=== PATIENT | female | born 1990 | race African-American/Black ===

== ENCOUNTER → 2017-10-17 | Outpatient (CLI) | payer OTHER | END | disposition home or self-care (01) | LOC: C.PAPS 11:36 | PROVIDERS: ATTEND Physician Assistant | DX: Z12.4 Encounter for screening for malignant neoplasm of cervix (principal) ==

== ENCOUNTER 2020-08-27 13:21 | Observation (INO) ==
[~2020-08-27 13:21] MED LIST: LACTATED RINGER'S 1,000 ML IV SCH
--- OUTSIDE RECORDS SUMMARY | 2020-08-27 13:25 | External Medical Summary | Continuity of Care Document ---
:1990 Author Name Chuck Ortega, Provider Address Unavailable Unavailable , Care Team Providers Name Role Phone Unavailable Unavailable Unavailable Linh Boone PA-C Unavailable [email or web address] [email or web address], UNKNOWN Unavailable Unavailable Unavailable Unavailable Unavailable Problems Active medical history not documented Allergies and Adverse Reactions No Known Drug Allergies (Allergy) Medications Microgestin FE 07/14 1-20 MG-MCG Oral Tablet; TAKE ONE TABLET BY MOUTH EVERY DAY ASHLEE Boone Start: 17-Oct-2017 Quantity: 1 28 Tablet Pack Refills: 12 Procedures History of no history of surgery Status: Completed Immunizations Immunizations not documented Family History uncle Family history of type 2 diabetes mellitus (V18.0) (Z83.3) S tatus: Active Social History - Smoking Status Smoker Interventions Discussion/SummaryI reviewed laboratory results for Ms. JHONY GARCIA. Pap Smear is normal I reviewed laboratory results for Ms. JHONY GARCIA. I reviewed laboratory results for Ms. JHONY GARCIA. Reviewed results with Ms. JHONY GARCIA. Plan of Treatment Planned Observations Planned Goals not documented Results No Known Results Results not documented
--- NOTE | 2020-08-27 14:19 | Emergency Department Note ---
Impression & Plan Ruptured ectopic ED Provider Note CHIEF COMPLAINT: Cramping and vaginal bleeding last night, positive home test this morning. HISTORY OF PRESENT ILLNESS: Patient is a 29-year-old female, G2, P0 Ab1 who presents the emergency department for evaluation of irregular vaginal bleeding, pelvic cramping and a positive home test. Patient notes that she had a normal menstrual cycle 08/03 through 08/07. Last evening, around 7:30 PM, she developed very bad suprapubic cramping that radiated to the bilateral adnexa. She tried a heating pad and taking ibuprofen. A few hours later, around 10:00, she had an abrupt gush of vaginal bleeding. She placed a tampon. She slept through the night. She kept the tampon and overnight. When she took out the tampon this morning, there was only a small amount of blood on it, it was not completely saturated, there is still white cotton visualized. She continued to have some mild discomfort today, suprapubic and radiating to the right lower quadrant. The cramping is much better. Patient states that while at work this morning, she took a home test, and it was positive. She is not due for her period for another 4 days. She still has some minor spotting this morning, and is wearing a tampon is unable to quantify the bleeding. 1 prior , terminated with an . No other gynecologic history. She has not had any gynecologic care in about 3 years, was previously seen at [facility]. REVIEW OF SYSTEMS: Review of systems as per HPI. All other systems reviewed were negative. 10 systems reviewed. PMH: Electronic medical records are reviewed and summarized as above/below. See Problem List.. SOCIAL HISTORY: Patient lives at home with her . Non-smoker. She is employed. PHYSICAL EXAM: Vital Signs: Reviewed Nurse's notes. CONSTITUTIONAL: Patient is a well-appearing 29-year-old female who is awake and alert and in no acute distress. EYES: Pupils equal, round, reactive to light and accommodation. EOMs intact without nystagmus. Sclera are anicteric. ENT: Tympanic membranes intact, with normal landmarks. External canals are clear. Oral and nasopharynx are clear. Mucous membranes are moist, no lesions, tongue and gums appear normal. CARDIOVASCULAR: Regular rate and rhythm. Peripheral pulses easily palpable. RESPIRATORY: Breath sounds equal and clear to auscultation. ABDOMEN: Bowel sounds are present. Abdomen is soft, slightly obese, nontender to percussion throughout. Mildly tender to palpation in the suprapubic region, and the right lower quadrant. No guarding or rebound. INTEGUMENTARY: No lesions or rash, normal skin turgor. LYMPH: No lymphadenopathy. EMERGENCY DEPARTMENT COURSE: The patient was seen and evaluated as above. She presents the emergency department for evaluation of abnormal vaginal bleeding and pelvic pain, with a positive home test this morning. Given her last menstrual period, she would be roughly 3 weeks . IV lock was initiated and laboratory studies were collected. She believes her blood type is A+. CBC with differential, BMP, urinalysis and quantitative hCG were collected. Laboratory studies noted a white count of 11,400. No left shift. H&H 13.2 and 30.6. Platelet count is normal. Electrolytes are within normal limits. Renal functions are normal. Quantitative hCG is 1755. Urine microscopy notes trace blood, positive for nitrates, trace leukocyte esterase with WBCs. 4+ bacteria noted. Patient is not experiencing any UTI symptoms, but urine culture is pending given the coloscopy. Blood type is confirmed as a positive. Given the hCG level, pelvic ultrasound was ordered. The pelvic ultrasound is concerning for a ruptured ectopic. There is a complex lesion in the right adnexa immediately adjacent to the right ovary with a moderate volume of complex free fluid in the pelvis. The endometrium is thickened and heterogeneous with no intrauterine gestation identified. Consultation was placed with Dr. Roberson. The patient was reassessed when she returned from ultrasound. Ultrasound findings were reviewed with the patient and her spouse. She was made aware that gynecology would be coming to see her. Last solid food intake was around 1200. She has had some Gatorade while in the emergency department over the last 3 hours. A Covid swab was obtained for suspected OR. The patient was seen in the emergency department by Dr. Roberson. He will take her to the OR this evening for surgical intervention. Differential diagnosis entertained included spontaneous vs missed vs incomplete , IUP, menses, abnormal vaginal bleeding, ectopic , among others. Past Med/Surg History Medical History No significant past medical history Surgical History No history of previous surgery Social History Smoking Status: Never smoker Preferred Language: Indonesian Feels Safe at Home: Yes Allergies Allergies Allergy/AdvReac Type Severity Reaction Status Date / Time No Known Allergies Allergy Verified 08/27/20 15:00 Home Meds Home Medications Medication Instructions Recorded Confirmed ibuprofen 400 mg PO DIRECTED PRN 08/27/20 08/27/20 Results & Data (ED) Vital Signs Vital Signs - 24 hr 08/27/20 13:29 08/27/20 16:00 08/27/20 17:17 Temperature 36.4 C L Temperature Source Oral Pulse Rate 90 Pulse Rate [Finger] 79 70 Respiratory Rate 16 16 18 Respiratory Effort / Characteristics Non-Labored Respiratory Depth Normal Normal Blood Pressure 154/95 H Blood Pressure [Right Arm] 111/80 130/93 Blood Pressure Mean 114 Blood Pressure Mean [Right Arm] 90 105 Blood Pressure Position Sitting Blood Pressure Position [Right Arm] Lying Pulse Oximetry 100 100 Oxygen Delivery Method Room Air Room Air Sepsis Recent Fever Within 48 Hours No Sepsis New/Unexplained Change in Mental Status N/A Sepsis Action Taken by Nursing No Action Required Home Medications Current Medication List: was personally reviewed by me Laboratory Data Attestation: I reviewed the patient's lab results. Result diagrams: 08/27/20 14:20 08/27/20 14:20 Lab Results 08/27/20 08/27/20 08/27/20 Range/Units 14:20 14:20 14:20 WBC (4.8-10.8) K/uL RBC (4.2-5.4) M/uL Hgb (12.0-16.0) g/dL Hct (37-47) % MCV (80-100) fL MCH (25-34) pg MCHC (32-36) g/dL RDW Std Deviation (36.4-46.3) fL RDW Coeff of Jessica (11.5-14.5) % Plt Count (130-400) K/uL MPV (7.4-10.4) fL Neutrophils % (Manual) % Lymphocytes % (Manual) % Monocytes % (Manual) % Eosinophils % (Manual) % Basophils % (Manual) % Neutrophils # (Manual) (1.4-6.5) K/uL Total Absolute Neuts (1.4-6.5) K/uL Lymphocytes # (Manual) (1.2-3.4) K/uL Total Abs Lymphocytes (1.2-3.4) K/uL Monocytes # (Manual) (0.11-0.59) K/uL Eosinophils # (Manual) (0-0.5) K/uL Basophils # (Manual) (0-0.2) K/uL Large Granular Lymphs % # Lrg Granular Lymphs K/uL RBC Morphology Sodium 139 (136-145) mmol/L Potassium 3.9 (3.5-5.1) mmol/L Chloride 110 H (98-107) mmol/L Carbon Dioxide 22 (21-32) mmol/L Anion Gap 7.0 (3-11) BUN 11 (7-18) mg/dl Creatinine 0.81 (0.6-1.2) mg/dl Est Cr Clr Drug Dosing 114.8 ml/min Est GFR ( Amer) 114.6 Est GFR (Non-Af Amer) 98.8 BUN/Creatinine Ratio 13.0 (10-20) Glucose 88 (70-99) mg/dl Calcium 9.2 (8.5-10.1) mg/dl HCG, Quant 1755 mIU/ml Specimen Hemolysis Urine Color Urine Appearance (Clear) Urine pH (4.5-7.5) Ur Specific [place] (1.000-1.030) Urine Protein (Negative) Urine Glucose (UA) (Negative) Urine Ketones (Negative) Urine Blood (Negative) Urine Nitrite (Negative) Urine Bilirubin (Negative) Urine Urobilinogen (Negative) Ur Leukocyte Esterase (Negative) Urine WBC (Auto) (0-5) /hpf Urine RBC (Auto) (0-4) /hpf U Hyaline Cast (Auto) (0-5) /lpf U Epithel Cells (Auto) (0-5) /lpf Urine Bacteria (Auto) (Negative) COVID-19 Eval Order SARS-CoV-2, RNA, NAAT (NEGATIVE) Blood Type A Positive 08/27/20 08/27/20 08/27/20 Range/Units 14:20 17:30 17:30 WBC 11.42 H (4.8-10.8) K/uL RBC 4.19 L (4.2-5.4) M/uL Hgb 13.2 (12.0-16.0) g/dL Hct 38.6 (37-47) % MCV 92.1 (80-100) fL MCH 31.5 (25-34) pg MCHC 34.2 (32-36) g/dL RDW Std Deviation 44.6 (36.4-46.3) fL RDW Coeff of Jessica 13.4 (11.5-14.5) % Plt Count 336 (130-400) K/uL MPV 9.3 (7.4-10.4) fL Neutrophils % (Manual) 40.2 % Lymphocytes % (Manual) 27.2 % Monocytes % (Manual) 8.8 % Eosinophils % (Manual) 1.8 % Basophils % (Manual) 0.9 % Neutrophils # (Manual) 4.59 (1.4-6.5) K/uL Total Absolute Neuts 4.59 (1.4-6.5) K/uL Lymphocytes # (Manual) 3.11 (1.2-3.4) K/uL Total Abs Lymphocytes 5.52 H (1.2-3.4) K/uL Monocytes # (Manual) 1.00 H (0.11-0.59) K/uL Eosinophils # (Manual) 0.21 (0-0.5) K/uL Basophils # (Manual) 0.10 (0-0.2) K/uL Large Granular Lymphs 21.1 % # Lrg Granular Lymphs 2.41 K/uL RBC Morphology Unremarkable Sodium (136-145) mmol/L Potassium (3.5-5.1) mmol/L Chloride (98-107) mmol/L Carbon Dioxide (21-32) mmol/L Anion Gap (3-11) BUN (7-18) mg/dl Creatinine (0.6-1.2) mg/dl Est Cr Clr Drug Dosing ml/min Est GFR ( Amer) Est GFR (Non-Af Amer) BUN/Creatinine Ratio (10-20) Glucose (70-99) mg/dl Calcium (8.5-10.1) mg/dl HCG, Quant mIU/ml Specimen Hemolysis Urine Color Urine Appearance (Clear) Urine pH (4.5-7.5) Ur Specific [place] (1.000-1.030) Urine Protein (Negative) Urine Glucose (UA) (Negative) Urine Ketones (Negative) Urine Blood (Negative) Urine Nitrite (Negative) Urine Bilirubin (Negative) Urine Urobilinogen (Negative) Ur Leukocyte Esterase (Negative) Urine WBC (Auto) (0-5) /hpf Urine RBC (Auto) (0-4) /hpf U Hyaline Cast (Auto) (0-5) /lpf U Epithel Cells (Auto) (0-5) /lpf Urine Bacteria (Auto) (Negative) COVID-19 Eval Order Covid19 IDNow atMWIC SARS-CoV-2, RNA, NAAT NEGATIVE (NEGATIVE) Blood Type 08/27/20 Range/Units Unknown WBC (4.8-10.8) K/uL RBC (4.2-5.4) M/uL Hgb (12.0-16.0) g/dL Hct (37-47) % MCV (80-100) fL MCH (25-34) pg MCHC (32-36) g/dL RDW Std Deviation (36.4-46.3) fL RDW Coeff of Jessica (11.5-14.5) % Plt Count (130-400) K/uL MPV (7.4-10.4) fL Neutrophils % (Manual) % Lymphocytes % (Manual) % Monocytes % (Manual) % Eosinophils % (Manual) % Basophils % (Manual) % Neutrophils # (Manual) (1.4-6.5) K/uL Total Absolute Neuts (1.4-6.5) K/uL Lymphocytes # (Manual) (1.2-3.4) K/uL Total Abs Lymphocytes (1.2-3.4) K/uL Monocytes # (Manual) (0.11-0.59) K/uL Eosinophils # (Manual) (0-0.5) K/uL Basophils # (Manual) (0-0.2) K/uL Large Granular Lymphs % # Lrg Granular Lymphs K/uL RBC Morphology Sodium (136-145) mmol/L Potassium (3.5-5.1) mmol/L Chloride (98-107) mmol/L Carbon Dioxide (21-32) mmol/L Anion Gap (3-11) BUN (7-18) mg/dl Creatinine (0.6-1.2) mg/dl Est Cr Clr Drug Dosing ml/min Est GFR ( Amer) Est GFR (Non-Af Amer) BUN/Creatinine Ratio (10-20) Glucose (70-99) mg/dl Calcium (8.5-10.1) mg/dl HCG, Quant mIU/ml Specimen Hemolysis Urine Color Yellow Urine Appearance Clear (Clear) Urine pH 7.0 (4.5-7.5) Ur Specific [place] 1.015 (1.000-1.030) Urine Protein Negative (Negative) Urine Glucose (UA) Negative (Negative) Urine Ketones Negative (Negative) Urine Blood Trace H (Negative) Urine Nitrite Positive A (Negative) Urine Bilirubin Negative (Negative) Urine Urobilinogen Negative (Negative) Ur Leukocyte Esterase Trace H (Negative) Urine WBC (Auto) 5-10 H (0-5) /hpf Urine RBC (Auto) 0-4 (0-4) /hpf U Hyaline Cast (Auto) 1-5 (0-5) /lpf U Epithel Cells (Auto) 20-30 H (0-5) /lpf Urine Bacteria (Auto) 4+ H (Negative) COVID-19 Eval Order SARS-CoV-2, RNA, NAAT (NEGATIVE) Blood Type Imaging Data Attestation: I personally reviewed and interpreted this imaging study as follows: Radiologist's Impression: ULTRASOUND OF THE PELVIS CLINICAL HISTORY: . Crampy abdominal pain. Bleeding. COMPARISON STUDY: No priors. TECHNIQUE: Real-time, grayscale, and color flow sonography of the pelvis is performed both transabdominally and endovaginally. Images are reviewed in the transverse and longitudinal planes. The endovaginal examination is performed to better assessment of the ovaries and adnexa. FINDINGS: Uterus: The uterus is normal in size and heterogeneous in echotexture, measuring 8.2 x 4.7 x 6.9 cm. Endometrium: Noted uterine gestation is identified. The endometrium is thickened and heterogeneous, measuring up to 1.4 cm. No abnormal flow was shown on color imaging. Ovaries: The ovaries are normal in size and morphology. The right ovary measures 3.4 x 2.8 x 2.2 cm and the left ovary measures 3.3 x 2.3 x 3.4 cm. There are bilateral ovarian follicles. A corpus luteum is suggested on the left. Normal Doppler waveforms are shown within both ovaries. Pelvis: There is a moderate volume of complex free fluid in the cul-de-sac. There is a complex lesion located immediately adjacent to the right ovary. This measures 6.6 x 4.7 x 2.5 cm this may contain a small gestational sac, and there is surrounding complex free fluid. IMPRESSION: 1. The endometrium is thickened and heterogeneous with no intrauterine gestation identified. 2. There is a complex lesion in the right adnexa immediately adjacent to the right ovary. Additionally, there is a moderate volume of complex free fluid in the pelvis. Findings are highly suspicious for a ruptured ectopic . Gynecological surgical assessment is advised. 3. Additional findings as above. Discharge Plan Visit Data Chief Complaint: Vaginal Bleeding Stated Complaint: CRAMPING, BLEEDING POSITIVE PREG ED Provider: Carlos Murrieta ED Midlevel Provider: Penny Taylor Discharge Problem: Ruptured ectopic Patient Disposition: Being Evaluated by Surgeon Forms [facility] [place] Prescriptions Prescriptions: No Action ibuprofen 200 mg Tablet 400 mg PO DIRECTED PRN (Reason: Pain) RF: 0 Referrals Referrals: PCP,NO [Primary Care Provider] -
[2020-08-27 14:31] LABS: Hematocrit (blood only) 38.6 % (37-47); Hemoglobin 13.2 g/dL (12.0-16.0); Mean Corpuscular Hemoglobin 31.5 pg (25-34); Mean Corpuscular Hgb Conc 34.2 g/dL (32-36); Mean Corpuscular Volume 92.1 fL (80-100); Mean Platelet Volume 9.3 fL (7.4-10.4); Platelet Count 336 K/uL (130-400); RDW Coefficient of Variation 13.4 % (11.5-14.5); RDW Standard Deviation 44.6 fL (36.4-46.3); Red Blood Count 4.19 M/uL (4.2-5.4); White Blood Count 11.42 K/uL (4.8-10.8)
[2020-08-27 14:56] LABS: Calcium 9.2 mg/dl (8.5-10.1); Creatinine Clr Calc Pharmacy 114.8 ml/min; Est GFR (African American) 114.6; Est GFR (Non-African American) 98.8; Potassium 3.9 mmol/L (3.5-5.1)
[2020-08-27 14:59] LABS: ALC (manual) 5.52 K/uL (1.2-3.4); ANC (manual) 4.59 K/uL (1.4-6.5); Basophils % (manual) 0.9 %; Eosinophils # (manual) 0.21 K/uL (0-0.5); Eosinophils % (manual) 1.8 %; Large Granular Lymph # (manua 2.41 K/uL; Large Granular Lymph % (manual) 21.1 %; Lymphocytes # (manual) 3.11 K/uL (1.2-3.4); Lymphocytes % (manual) 27.2 %; Monocytes % (manual) 8.8 %; Neutrophils # (manual) 4.59 K/uL (1.4-6.5); Neutrophils % (manual) 40.2 %; RBC Morphology Unremarkable
[2020-08-27 15:13] LABS: Appearance Urine Clear (Clear); Bacteria Urine Automated 4+ (Negative); Bilirubin Urine Negative (Negative); Blood Urine Trace (Negative); Color Urine Yellow; Epithelial Cell Urine Auto 20-30 /lpf (0-5); Glucose Urine UA Negative (Negative); Ketones Urine Negative (Negative); Leukocyte Esterase Urine Trace (Negative); Nitrite Urine Positive (Negative); Protein Urine Negative (Negative); RBC Urine Automated 0-4 /hpf (0-4); Specific Gravity Urine 1.015 (1.000-1.030); Urobilinogen Urine Negative (Negative)
--- NOTE | 2020-08-27 16:58 | Ultrasound Report ---
ULTRASOUND OF THE PELVIS CLINICAL HISTORY: . Crampy abdominal pain. Bleeding. COMPARISON STUDY: No priors. TECHNIQUE: Real-time, grayscale, and color flow sonography of the pelvis is performed both transabdom inally and endovaginally. Images are reviewed in the transverse and longitudinal planes. The endovagi nal examination is performed to better assessment of the ovaries and adnexa. FINDINGS: Uterus: The uterus is normal in size and heterogeneous in echotexture, measuring 8.2 x 4.7 x 6.9 cm. Endometrium: Noted uterine gestation is identified. The endometrium is thickened and heterogeneous, m easuring up to 1.4 cm. No abnormal flow was shown on color imaging. Ovaries: The ovaries are normal in size and morphology. The right ovary measures 3.4 x 2.8 x 2.2 cm a nd the left ovary measures 3.3 x 2.3 x 3.4 cm. There are bilateral ovarian follicles. A corpus luteum is suggested on the left. Normal Doppler waveforms are shown within both ovaries. Pelvis: There is a moderate volume of complex free fluid in the cul-de-sac. There is a complex lesion located immediately adjacent to the right ovary. This measures 6.6 x 4.7 x 2.5 cm this may contain a small gestational sac, and there is surrounding complex free fluid. IMPRESSION: 1. The endometrium is thickened and heterogeneous with no intrauterine gestation identified. 2. There is a complex lesion in the right adnexa immediately adjacent to the right ovary. Additionall y, there is a moderate volume of complex free fluid in the pelvis. Findings are highly suspicious for a ruptured ectopic . Gynecological surgical assessment is advised. 3. Additional findings as above. ACT 112: Negative or not required by law. Electronically signed by: Dewayne Bauer M.D. 08/27/2020 4:57 PM
[2020-08-27] MEDS ORDERED: ceFAZolin 2000MG 2,000 MG/15 ML SYR IV ONE (17:40)
[2020-08-27] MEDS ORDERED: LIDOCAINE HCL 2% 2 ML VIAL/AMP(20MG/ML) INFIL ONE ×2 (18:26→23:52)
[2020-08-27] MEDS ORDERED: ONDANSETRON INJ 2 MG/ML 2 ML VIAL ONE ×2 (18:26→23:52)
[2020-08-27] MEDS ORDERED: PROPOFOL IV EMULSION 10 MG/ML 20 ML VIAL IV ONE ×2 (18:26→23:52)
[2020-08-27] MEDS ORDERED: ROCURONIUM BROMIDE 10 MG/ML 5 ML VIAL IV ONE (18:26)
[2020-08-27] MEDS ORDERED: NEOSTIGMINE METHYLSULFATE 5 MG/5 ML SYR ONE (18:26)
[2020-08-27] MEDS ORDERED: GLYCOPYRROLATE 0.2 MG/ML VIAL ONE (18:26)
[2020-08-27] MEDS ORDERED: DEXAMETHASONE SOD INJ 4 MG/ML VIAL ONE (18:26)
[2020-08-27] MEDS ORDERED: MIDAZOLAM HCL 1 MG/ML 2ML VIAL ONE (18:27)
[2020-08-27] MEDS ORDERED: fentaNYL citrate 100 MCG/2 ML VIAL ONE ×2 (18:27→23:30)
[2020-08-27] MEDS ORDERED: BUPIVACAINE/EPINEPHRINE 0.5% MPF 1:200,000 30 ML VIAL ONE (18:45)
--- NOTE | 2020-08-27 18:59 | History and Physical Report ---
DATE OF ADMISSION: 08/27/2020 HISTORY OF PRESENT ILLNESS: The patient is a 29-year-old G2, P1, presented to the Emergency Room with abdominal pain. Workup including beta hCG showed a right ectopic , possibly ruptured. The patient is stable. Results are discussed with the patient and patient had agreed to undergo surgery. PAST MEDICAL HISTORY: No history of diabetes, hypertension or asthma. PAST SURGICAL HISTORY: None. SOCIAL HISTORY: The patient denies tobacco, drug or alcohol use. PHYSICAL EXAMINATION: GENERAL: Well-developed, well-nourished black female in no acute distress. VITAL SIGNS: Blood pressure 130/93, pulse is 70, respirations 18, temperature 36.4. HEART: S1 and S2, regular rhythm and rate. LUNGS: Clear to auscultation bilaterally. ABDOMEN: Slightly tender, nondistended, no guarding. PELVIC: Showed moderate amount of blood in the vagina. EXTREMITIES: No cyanosis, clubbing or edema. LABORATORY DATA: White count is 11.4, hemoglobin is 13.2, hematocrit is 38.6. ASSESSMENT AND PLAN: A 29-year-old G2, P0 with possible right ruptured ectopic . Discussed surgery with patient. Surgery is operative laparoscopy, possible right salpingo-oophorectomy. The patient agreed to surgery. We further discussed possible laparotomy. Consent is signed. Risks and benefits of surgery are discussed. The patient is scheduled for surgery.
--- NOTE | 2020-08-27 23:08 | History & Physical Bridge Note ---
Date of Service August 27, 2020 History & Physical Bridge Note I have examined the patient, reviewed the History & Physical and in the interval since the performance of the History & Physical I have noted the following changes of clinical significance: no changes noted
[2020-08-27] MEDS ORDERED: PROMETHAZINE HCL 6.25 MG in SODIUM CHLORIDE 0.9% 50 ML IV PRN (23:21)
[2020-08-27] MEDS ORDERED: ePHEDrine sulfate 50 MG/ML AMP IV PRN (23:21)
[2020-08-27] MEDS ORDERED: ONDANSETRON INJ 2 MG/ML 2 ML VIAL IV PRN (23:21)
[2020-08-27] MEDS ORDERED: fentaNYL citrate 100 MCG/2 ML VIAL IV PRN (23:21)
[2020-08-27] MEDS ORDERED: HYDROmorphone INJ 2 MG/ML SYR/VIAL IV PRN (23:21)
[2020-08-27] MEDS ORDERED: ATROPINE SULFATE 0.1 MG/ML 10ML SYR IV PRN (23:21)
[2020-08-27] MEDS ORDERED: SUCCINYLCHOLINE CHLORIDE 20 MG/ML 10 ML VIAL IV ONE (23:52)
[2020-08-27] MEDS ORDERED: ROCURONIUM BROMID 50MG/5ML SYR ONE (23:52)
[2020-08-27] MEDS ORDERED: KETOROLAC 30 MG/ML VIAL ONE (23:53)
[2020-08-28] MEDS ORDERED: GLYCOPYRROLATE 0.2 MG/ML VIAL ONE (00:21)
[2020-08-28] MEDS ORDERED: NEOSTIGMINE METHYLSULFATE 5 MG/5 ML SYR ONE (00:21)
--- NOTE | 2020-08-28 01:34 | Anesthesiology Progress Note ---
Date of Service August 28, 2020 Anesthesia Post Procedure Vital Signs Vital Signs: Temp Pulse Pulse Pulse Resp BP BP 08/28/20 01:16 36.2 C L 75 16 100/70 08/27/20 18:14 37.7 C H 74 18 130/96 08/27/20 18:04 36.5 C 84 16 115/80 08/27/20 17:17 70 18 130/93 08/27/20 16:00 79 16 111/80 08/27/20 13:29 36.4 C L 90 16 154/95 H Pulse Ox 08/28/20 01:16 98 08/27/20 18:14 97 08/27/20 18:04 97 08/27/20 17:17 100 08/27/20 16:00 08/27/20 13:29 100 Pain Intensity Abdomen: Pain Intensity: 1 Transfer of Care Handoff Completed per policy Notes Mental Status: alert / awake / arousable Patient Amnestic to Procedure: Yes Nausea / Vomiting: adequately controlled Pain: adequately controlled Airway Patency, RR, SpO2: stable & adequate BP & HR: stable & adequate Hydration State: stable & adequate Anesthetic Complications: no major complications apparent
[2020-08-28] MEDS ORDERED: oxyCODONE/ACETAMINOPHEN 5mg/325mg TAB PO PRN (01:46)
[2020-08-28] MEDS ORDERED: IBUPROFEN 600 MG TAB PO PRN (01:46)
--- NOTE | 2020-08-28 01:46 | Post Operative Brief Note ---
Immediate Post Op Note v1 Date of Surgery August 28, 2020 Pre & Post Diagnosis Operation Date: 08/27/20 17:45 Pre-Op Diagnosis: right ruptured ectopic Post-Op Diagnosis: right ruptured ectopic I identified the patient and participated in the time-out.: Yes Procedure Operation Date: 08/27/20 17:45 Actual Procedures p Operative Laparoscopy, removal of ectopic (Right) - Arnold Roberson MD Surgeon Arnold Roberson MD Heating And Cooling Technician none Estimated Blood Loss 5 Findings Consistent with Post-Op Diagnosis Drains Nagel Catheter
[2020-08-28] MEDS ORDERED: LACTATED RINGER'S 1,000 ML IV SCH (02:00)
[2020-08-28 07:07] LABS: Basophils # (auto) 0.01 K/uL (0-0.2); Basophils % (auto) 0.1 %; Hematocrit (blood only) 34.9 % (37-47); Immature Granulocytes # (auto) 0.01 K/uL (0.00-0.02); Immature Granulocytes % (auto) 0.1 %; Lymphocytes # (auto) 1.39 K/uL (1.2-3.4); Lymphocytes % (auto) 18.7 %; Mean Corpuscular Hemoglobin 31.3 pg (25-34); Mean Corpuscular Hgb Conc 34.4 g/dL (32-36); Mean Corpuscular Volume 91.1 fL (80-100); Mean Platelet Volume 8.6 fL (7.4-10.4); Monocytes % (auto) 2.7 %; Neutrophils # (auto) 5.84 K/uL (1.4-6.5); Neutrophils % (auto) 78.4 %; Platelet Count 295 K/uL (130-400); RDW Coefficient of Variation 13.2 % (11.5-14.5); RDW Standard Deviation 44.6 fL (36.4-46.3); Red Blood Count 3.83 M/uL (4.2-5.4); White Blood Count 7.45 K/uL (4.8-10.8)
--- NOTE | 2020-08-28 08:13 | Progress Note ---
Date of Service August 28, 2020 Assessment & Plan Admission and Anticipated Discharge Date Admission Date: August 28, 2020 Subjective Pt doing well no complaints disch home with instructions Results & Data ([facility]) Vital Signs (Past 12 Hours) Vital Signs Temp Pulse Pulse Pulse Resp BP BP 08/28/20 07:43 36.5 C 64 16 113/70 08/28/20 05:27 36.8 C 77 16 107/71 08/28/20 04:25 36.8 C 71 16 98/63 L 08/28/20 03:30 36.8 C 64 16 104/68 08/28/20 03:09 36.8 C 76 16 112/75 08/28/20 02:30 36.7 C 67 16 102/68 08/28/20 02:15 36.3 C L 62 16 109/63 08/28/20 02:05 36.3 C L 64 16 105/67 08/28/20 01:55 36.3 C L 64 16 106/66 08/28/20 01:45 36.3 C L 61 15 110/63 08/28/20 01:35 62 17 108/65 08/28/20 01:25 70 18 106/62 08/28/20 01:16 36.2 C L 75 16 100/70 Pulse Ox 08/28/20 07:43 98 08/28/20 05:27 98 08/28/20 04:25 98 08/28/20 03:30 96 08/28/20 03:09 97 08/28/20 02:30 93 08/28/20 02:15 94 08/28/20 02:05 95 08/28/20 01:55 95 08/28/20 01:45 96 08/28/20 01:35 99 08/28/20 01:25 99 08/28/20 01:16 98
--- NOTE | 2020-08-30 08:08 | Operative Report (OR) ---
DATE OF OPERATION: 08/28/2020 INDICATION FOR SURGERY: This is a 29-year-old with a ruptured ectopic of the right adnexa. PREOPERATIVE DIAGNOSES: 1. Ectopic , suspected ruptured. 2. Hemoperitoneum. POSTOPERATIVE DIAGNOSES: 1. Ectopic , suspected ruptured. 2. Hemoperitoneum. SURGEON: Arnold Roberson MD TERRITORY SALES EXECUTIVE: None. PROCEDURES: 1. Examination under anesthesia. 2. Operative laparoscopy. 3. Right salpingectomy. 4. Evacuation of hemoperitoneum. COMPLICATIONS: None. DRAINS: None. SPECIMEN: Right fallopian tube with ectopic gestation. DISPOSITION: Stable to recovery room. FINDINGS: Normal female escutcheon. Cervix and vagina appeared grossly normal. Abdominal findings, dilated fallopian tube with ectopic gestation of the right side, Both left and right ovaries appeared grossly normal. The fallopian tube and uterus and rest of the pelvic and abdominal structures appeared grossly normal. DESCRIPTION OF PROCEDURE: The patient was taken to the operating room where she was prepped and draped in normal sterile fashion in dorsal lithotomy position after timeout was called. Nagel catheter was placed in the bladder. A weighted speculum was placed in the vagina. Connelly retractor was used to retract the anterior part of the vagina. Uterine manipulator was placed into the uterus to help manipulate the uterus during laparoscopy. Attention was paid to the abdominal part of the procedure where a supraumbilical incision was made about 3 cm above the umbilicus with a #11 blade. Kochers were used to grab the fascia. A Veress needle was introduced into the abdomen at a 45-degree angle. A water-filled syringe was used to perform placement test. Once the Veress needle placement was confirmed, the abdomen was insufflated with 3 liters of CO2 gas. Veress needle was removed. A 10 mm trocar with a laparoscope was placed into the abdomen under direct visualization. This was a nonbladed trocar. Once inside the abdomen, three additional ports were placed, two 5 mm ports and a 10 mm port on the left lower abdomen. The patient was placed in Trendelenburg position. Findings of the abdomen are as dictated above, there is right ectopic gestation in the right fallopian tube. Both ovaries appeared grossly normal. There was about 20 mL of hemoperitoneum in the pelvis. Bowel was moved out of the operating field in the pelvis. Suction was passed through the accessory port and much of the hemoperitoneum was suctioned. The right fallopian tube was grabbed with a grasper and 5 mm LigaSure was passed through the accessory port and transection of the fallopian tube on the right side was performed. Copious amount of irrigation was used to irrigate the abdomen. There was good hemostasis at the site of the transection. The specimen was pulled through the lower left 10 mm port after Endobag was passed through the port. Once the specimen was removed, the 10 mm port was closed under direct visualization with Vicryl stitch. More irrigation was used to irrigate the abdomen. All the clots were removed with the suction. Trocars were removed and the 10 mm port at the supraumbilical incision was also closed with Vicryl stitch. All skin closures were performed with 4-0 Monocryl. Attention was paid back to the vaginal part of the procedure where the uterine manipulator and a single tooth tenaculum was removed. The Nagel catheter was removed as well. There was good hemostasis at the tenaculum site. All instruments were removed from the abdomen and vagina and accounted for x2 including sponges, needles, and retractors. The patient was sent to recovery in stable condition. I attest to the content of the Intraoperative Record and any orders documented therein. Any exception s are noted below.
--- NOTE | 2020-09-13 23:13 | Discharge Summary (DS) ---
HISTORY OF PRESENT ILLNESS: This is a 29-year-old G2, P1 who presented to Emergency Room on 08/27/2020 with abdominal pain. Workup including beta hCG that showed a right ectopic , which was possibly ruptured. CONSULTING DATABASE ADMINISTRATOR was consulted. Discussed findings with the patient. The patient agreed and underwent laparoscopic surgery. Details of surgery are in the surgical note. The patient otherwise did well and was discharged home on 08/28/2020. PAST MEDICAL HISTORY: No history of diabetes, hypertension or asthma. PAST SURGICAL HISTORY: None. SOCIAL HISTORY: The patient denies tobacco, drug or alcohol use. FAMILY HISTORY: Noncontributory. ALLERGIES: No known drug allergies. REVIEW OF SYSTEMS: Negative. PHYSICAL EXAMINATION: GENERAL: Well-developed, well-nourished black female in no acute distress. VITAL SIGNS: Blood pressure was 130/93, pulse of 70, respirations 18. HEART: S1, S2, regular rhythm and rate. LUNGS: Clear to auscultation bilaterally. ABDOMEN: Nontender, nondistended. Incision site was clean, dry and intact. EXTREMITIES: No cyanosis, clubbing or edema. CONDITION ON DISCHARGE: Stable. OPERATION: Operative laparoscopy. DISCHARGE DIAGNOSIS: Postop after operative laparoscopy. PLAN ON DISCHARGE: The patient is discharged home with instructions regarding diet, activity, followup appointment.
== END 2020-08-28 10:58 | disposition home or self-care (01) ==
LOC: ED 13:21 → ASU 18:04 → 3W 18:04 → MERGE 08-28 01:46

== ENCOUNTER 2023-04-27 06:31 | Inpatient (IN) ==
[2023-04-27] MEDS ORDERED: SODIUM CHLORIDE 0.9% 1,000 ML IV ONE ×2 (06:47→07:58)
[2023-04-27] MEDS ORDERED: KETOROLAC TROMETHAMINE 15 MG/ML VIAL IV STA (07:15)
[2023-04-27] MEDS ORDERED: ONDANSETRON INJ 2 MG/ML 2 ML VIAL IV STA (07:15)
[2023-04-27 07:30] LABS: Pregnancy Test, Urine Negative (Negative)
[2023-04-27 07:36] LABS: Appearance Urine Slightly Cloudy (Clear); Color Urine Orange; Specific Gravity Urine 1.021 (1.000-1.030)
[2023-04-27 07:42] LABS: Bacteria Urine 3+ (Negative); Hyaline Casts Urine 0-5 /lpf (0-5); Mucus Urine Present (None Prsent); WBC Urine >30 /hpf (0-5)
--- NOTE | 2023-04-27 07:49 | Emergency Department Note ---
History of Present Illness General Chief Complaint: Urinary Symptoms Stated Complaint: UTI AND ABD PAIN Time Seen by Provider: 04/27/23 06:47 History of Present Illness Provider Complaint: abdominal pain and flank pain Onset (ago): 4 day(s) Location: diffuse Severity: moderate Maximum Pain Intensity: 4 Current Pain Intensity: 4 Quality: + stabbing and + sharp Relieved By: + nothing Exacerbated By: + other (urinating) Context: no foreign travel, no possible food poisoning, no sick contacts or no recent antibiotic use Associated Symptoms: + nausea, + vomiting, + dysuria and + hematuria; no diarrhea, no fever, no chills, no hematemesis, no headache and no chest pain Patient was seen at a local urgent care and prescribed Pyridium but not an antibiotic. Related Data Patient Confirmed : No Home Medications Medication Instructions Recorded Confirmed Type ibuprofen 200 mg tablet 400 mg PO DIRECTED PRN Pain 08/27/20 04/27/23 History amlodipine 2.5 mg tablet 2.5 mg PO DAILY #90 tabs 03/13/23 04/27/23 Rx amlodipine 5 mg tablet 5 mg PO DAILY #90 tabs 03/13/23 04/27/23 Rx norethindrone (contraceptive) 0.35 0.35 mg PO DAILY #84 tabs 04/03/23 04/27/23 Rx mg tablet clotrimazole-betamethasone 1 1 applic topical BID PRN eczema 04/27/23 04/27/23 History %-0.05 % topical cream Allergies Allergy/AdvReac Type Severity Reaction Status Date / Time No Known Allergies Allergy Verified 03/13/23 10:17 Past Med/Surg History Medical History UTI (urinary tract infection) Elevated BP without diagnosis of hypertension Suspected COVID-19 virus infection Surgical History Hx of unilateral salpingectomy Family History Grandfather (Maternal) Lung cancer Hypertension Other Obstructive sleep apnea Denies family history of Ovarian cancer Prostate cancer Depression Myocardial infarction Breast cancer Colorectal cancer Stroke Social History Smoking Status: Current every day smoker Tobacco Type: E-cigarettes / Vaping Second Hand Exposure: No; Do You Dip or Chew Tobacco: No; Hx Alcohol Use: Yes Alcohol type: beer, wine and hard liquor Hx Substance Use: No Preferred Language: Divehi Communication Ability: Effective Visual Impairment: Limited Account Manager Employee Benefits Required: No Beliefs That Will Affect Care: None marital status: Legally Current Living Situation: Alone current occupational status: employed 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 [employer] How many Children do You have: 0 Feels Safe at Home: Yes Childhood Exposure to Second-Hand Smoke: No caffeine: Yes Dental Care, Regularly: Yes Physical Activity Frequency: Does not Exercise Seatbelt Use: always Sunscreen Use: Yes Assistive Devices: None Physical Exam 2 Vital Signs: Vital Signs - 24 hr 04/27/23 06:34 04/27/23 07:56 04/27/23 07:56 Temperature 36.5 C Temperature Source Temporal Artery Sc an Pulse Rate 138 H Pulse Rate [Finger ] 95 H Respiratory Rate 17 14 Respiratory Effort / Characteristics Non-Labored Sponta neous Respiratory Depth Normal Respiratory Patter n Regular Blood Pressure 114/78 Blood Pressure [Le ft Arm] 110/68 Blood Pressure Ana Paula n 90 Blood Pressure Ana Paula n [Left Arm] 82 Pulse Oximetry 96 98 Oxygen Delivery Me thod Room Air Room Air Room Air Sepsis Recent Feve r Within 48 Hours No Sepsis New/Unexpla ined Change in Men arabella Status No Sepsis Action Take n by Nursing No Action Required 04/27/23 08:18 Temperature Temperature Source Pulse Rate 89 Pulse Rate [Finger ] Respiratory Rate Respiratory Effort / Characteristics Respiratory Depth Respiratory Patter n Blood Pressure Blood Pressure [Le ft Arm] Blood Pressure Ana Paula n Blood Pressure Ana Paula n [Left Arm] Pulse Oximetry Oxygen Delivery Me thod Sepsis Recent Feve r Within 48 Hours Sepsis New/Unexpla ined Change in Men arabella Status Sepsis Action Take n by Nursing Physical Exam: Physical Exam GENERAL: She is oriented to person, place, and time. She appears well-developed and well-nourished. She does not appear distressed. HENT: Exam performed. -Head: Normocephalic and atraumatic. -Right Ear: External ear normal. No mastoid erythema -Left Ear: External ear normal. No mastoid erythema -Mouth/Throat: The oropharynx is clear and moist. No trismus in the jaw. No dental abscesses or uvula swelling. No oropharyngeal exudate or tonsillar abscesses. EYES: Conjunctivae and EOM are normal.Right eye exhibits no discharge. Left eye exhibits no discharge. No scleral icterus. NECK: Normal range of motion. Neck supple. No JVD present. No tracheal deviation and normal range of motion present. CV: Normal rate, regular rhythm, normal heart sounds and intact distal pulses. There is no peripheral edema. Palpable radial pulses bue. PULM/CHEST: Effort normal and breath sounds normal. No respiratory distress. No stridor. She has no wheezes. She has no rales. -Chest Wall: She exhibits no tenderness. ABD: The abdomen is soft. Bowel sounds are normal. She has no distension. No mass is present. There is diffuse tenderness to palpation of the abdomen. There is no rebound, no guarding, no Martell's sign and no tenderness at McBurney's point. Rovsig negative MUSC/SKEL: Normal range of motion. There is no peripheral edema, tenderness or deformity. NEURO: Motor and sensation grossly intact. SKIN: Skin is warm and dry. She is not diaphoretic. PSYCH: She has a normal mood and affect. Behavior is normal. Judgment and thought content normal. Course Course 0647: The patient was evaluated in room B5. A complete history and physical exam was performed Cardiac monitoring: An order was placed for continuous cardiac monitoring. The monitor shows a rate of 110 with sinus rhythm interpreted by mi 0851: Vital signs stable. Labs show leukocytosis of 12.37. Sodium 133. Creatinine 0.55. Initial lactic acid 3.3. AST ALT 94 and 96. Urinalysis does show 3+ bacteria. 2 L normal saline ordered base of a 30 cc/kg dose based off the patient's ideal body weight. Patient treated with Cipro IV piggyback. Lipase 1870. CT of the abdomen pelvis does show findings consistent with pancreatitis. Patient does report to drinking alcohol on a regular basis which is thought to be the primary cause of the patient's pancreatitis. [facility]. Administered Medications Lactated Ringer's (Lr) 1,000 mls @ 125 mls/hr IV .Q8H RENE Stop: 05/27/23 10:29 Last Admin: 04/27/23 11:06 Dose: 125 mls/hr Documented By: MANNIE Discontinued Medications Sodium Chloride (Nss) 1,000 mls @ 999 mls/hr IV .Q1H1M ONE Stop: 04/27/23 07:47 Last Infusion: 04/27/23 08:17 Dose: Infused Documented By: Admin: 04/27/23 07:16 Dose: 999 mls/hr Documented By: MANNIE Sodium Chloride (Nss) 1,000 mls @ 999 mls/hr IV .Q1H1M ONE Stop: 04/27/23 08:58 Last Infusion: 04/27/23 09:09 Dose: Infused Documented By: Admin: 04/27/23 08:08 Dose: 999 mls/hr Documented By: MANNIE Ciprofloxacin (Cipro / D5w) 400 mg in 200 mls @ 100 mls/hr IV NOW STA; Protocol Stop: 04/27/23 09:57 Last Infusion: 04/27/23 10:08 Dose: Infused Documented By: Admin: 04/27/23 08:08 Dose: 100 mls/hr Documented By: MANNIE Ketorolac Tromethamine (Ketorolac Tromethamine 15 Mg/Ml Vial) 15 mg IV NOW STA Stop: 04/27/23 07:16 Last Admin: 04/27/23 07:43 Dose: 15 mg Documented By: MANNIE Ondansetron HCl (Ondansetron Inj 2 Mg/Ml 2 Ml Vial) 4 mg IV NOW STA Stop: 04/27/23 07:16 Last Admin: 04/27/23 07:42 Dose: 4 mg Documented By: MANNIE Medical Decision Making Laboratory Data Attestation: I reviewed the patient's lab results. 04/27/23 07:12 04/27/23 07:12 Lab Results 04/27/23 04/27/23 04/27/23 Range/Units 06:46 06:49 07:12 WBC 12.37 H (4.8-10.8) K/ul RBC 4.16 L (4.20-5.40) M/uL Hgb 14.3 (12.0-16.0) g/dl Hct 39.2 (37.0-47.0) % MCV 94.2 (80.0-100.0) fL MCH 34.4 H (25.0-34.0) pg MCHC 36.5 H (32.0-36.0) g/dL RDW Std Deviation 44.7 (36.4-46.3) fL RDW Coeff of Jessica 13.0 (11.5-14.5) % Plt Count 143 (130-400) K/uL MPV 10.4 (9.4-12.4) fL Immature Gran % (Auto) 0.5 % Neut % (Auto) 84.6 % Lymph % (Auto) 7.9 % Davie % (Auto) 6.2 % Eos % (Auto) 0.4 % Baso % (Auto) 0.4 % Neut # (Auto) 10.46 H (1.40-6.50) K/uL Lymph # (Auto) 0.98 L (1.20-3.40) K/uL Davie # (Auto) 0.77 H (0.11-0.59) K/uL Eos # (Auto) 0.05 (0.00-0.50) K/uL Baso # (Auto) 0.05 (0.00-0.20) K/uL Immature Gran # (Auto) 0.06 (0.01-0.20) K/uL Sodium 133 L (136-145) mmol/L Potassium 3.6 (3.5-5.1) mmol/L Chloride 92 L (98-107) mmol/L Carbon Dioxide 19 L (21-32) mmol/L Anion Gap 22 H (3-11) BUN 15 (6-23) mg/dl Creatinine 0.55 L (0.6-1.2) mg/dl Est Cr Clr Drug Dosing 147.6 ml/min Est GFR ( Amer) 144.9 ml/min Est GFR (Non-Af Amer) 125.0 ml/min BUN/Creatinine Ratio 27.3 H (10-20) Glucose 70 (70-99(Fasting)) mg/dl Lactate 3.3 H* (0.4-2.0) mmol/L Calcium 8.8 (8.6-10.3) mg/dl Total Bilirubin 0.6 (0.2-1.0) mg/dl Direct Bilirubin 0.1 (0-0.2) mg/dl AST 94 H (13-39) U/L ALT 96 H (7-52) U/L Alkaline Phosphatase 68 (34-104) U/L Total Protein 7.3 (6.0-8.3) gm/dl Albumin 4.0 (3.4-5.0) gm/dl Lipase 1871 H (11-82) U/L Urine Color [place] Urine Appearance Slightly Cloudy (Clear) Urine pH (4.5-7.5) Ur Specific [place] 1.021 (1.000-1.030) Urine Protein (Negative) Urine Glucose (UA) (Negative) Urine Ketones (Negative) Urine Blood (Negative) Urine Nitrite (Negative) Urine Bilirubin (Negative) Urine Urobilinogen (Negative) Ur Leukocyte Esterase (Negative) Urine RBC 5-10 H (0-4) /hpf Urine WBC >30 H (0-5) /hpf Ur Epithelial Cells 10-20 H (0-5) /lpf Urine Bacteria 3+ H (Negative) Hyaline Casts 0-5 (0-5) /lpf Urine Mucus Present A (None Prsent) Urine Test Negative (Negative) Imaging Data Radiologist's Impression: Abdomen/Pelvis CT 04/27/23 06:48 CT OF THE ABDOMEN AND PELVIS WITHOUT CONTRAST CLINICAL HISTORY: Hematuria. Dysuria. COMPARISON STUDY: No previous studies for comparison. TECHNIQUE: Axial images of the abdomen and pelvis were obtained without IV contrast. Images were reviewed in the axial, sagittal, and coronal planes. Automated exposure control was utilized for the study. A dose lowering technique was utilized adhering to the principles of ALARA. FINDINGS: There is a trace left pleural effusion. No pneumatosis, free air or portal venous gas is present. No renal, ureteral or bladder calculi are present. There is no hydronephrosis. Evaluation of the remainder of the abdomen and pelvis is suboptimal on this unenhanced exam. Severe hepatic steatosis is noted. Liver is mildly enlarged. There is no biliary or pancreatic ductal dilatation. Gallbladder is mildly distended. Peripancreatic stranding and a small amount of peripancreatic fluid is noted. The gland is edematous. No loculated peripancreatic fluid collection is present. Small amount of abdominal ascites is present. There is associated mesenteric stranding. There is moderate pelvic ascites. Spleen, adrenal glands and kidneys are unremarkable on unenhanced exam. The appendix is normal. There is no evidence for a bowel obstruction. Apparent wall thickening of the ascending and proximal transverse colon is likely due to underdistention. IMPRESSION: 1. Findings consistent with acute pancreatitis. Edematous pancreas with peripancreatic stranding and a small amount of peripancreatic ascites. Moderate fluid within the pelvis. 2. Severe hepatic steatosis. Mild hepatomegaly. 3. Wall thickening of the ascending and proximal to mid transverse colon. This is likely due to underdistention although a nonspecific colitis could appear similar. No bowel obstruction. Normal appendix. 4. No urinary calculi or hydronephrosis. 5. Trace left pleural effusion. ACT 112: Negative or not required by law. Electronically signed by: Khoa Gonzalez M.D. 04/27/2023 8:35 AM [facility] Narrative 0647: The patient was evaluated in room B5. A complete history and physical exam was performed Cardiac monitoring: An order was placed for continuous cardiac monitoring. The monitor shows a rate of 110 with sinus rhythm interpreted by mi 0851: Vital signs stable. Labs show leukocytosis of 12.37. Sodium 133. Creatinine 0.55. Initial lactic acid 3.3. AST ALT 94 and 96. Urinalysis does show 3+ bacteria. 2 L normal saline ordered base of a 30 cc/kg dose based off the patient's ideal body weight. Patient treated with Cipro IV piggyback. Lipase 1870. CT of the abdomen pelvis does show findings consistent with pancreatitis. Patient does report to drinking alcohol on a regular basis which is thought to be the primary cause of the patient's pancreatitis. Patient will be [facility] to [facility] hospitalist team Dr. Bearden team notified. Impression & Plan Acute pancreatitis, UTI (urinary tract infection) Discharge Plan Visit Data Chief Complaint: Urinary Symptoms Stated Complaint: UTI AND ABD PAIN ED Provider: Josue Khanna Discharge Problem: Acute pancreatitis, UTI (urinary tract infection) Patient Disposition: Admitted As Inpatient Discharge Instructions Interventions: ED Discharge Assessment Last Done: 04/27/23 13:15
[2023-04-27 07:50] LABS: Basophils # (auto) 0.05 K/uL (0.00-0.20); Basophils % (auto) 0.4 %; Eosinophils # (auto) 0.05 K/uL (0.00-0.50); Eosinophils % (auto) 0.4 %; Hematocrit (blood only) 39.2 % (37.0-47.0); Hemoglobin 14.3 g/dl (12.0-16.0); Immature Granulocytes # (auto) 0.06 K/uL (0.01-0.20); Immature Granulocytes % (auto) 0.5 %; Lymphocytes # (auto) 0.98 K/uL (1.20-3.40); Lymphocytes % (auto) 7.9 %; Mean Corpuscular Hemoglobin 34.4 pg (25.0-34.0); Mean Corpuscular Hgb Conc 36.5 g/dL (32.0-36.0); Mean Corpuscular Volume 94.2 fL (80.0-100.0); Mean Platelet Volume 10.4 fL (9.4-12.4); Monocytes # (auto) 0.77 K/uL (0.11-0.59); Monocytes % (auto) 6.2 %; Neutrophils # (auto) 10.46 K/uL (1.40-6.50); Neutrophils % (auto) 84.6 %; Platelet Count 143 K/uL (130-400); RDW Standard Deviation 44.7 fL (36.4-46.3); Red Blood Count 4.16 M/uL (4.20-5.40); White Blood Count 12.37 K/ul (4.8-10.8)
[2023-04-27 07:55] LABS: BUN Creatinine Ratio 27.3 (10-20); Calcium 8.8 mg/dl (8.6-10.3); Creatinine Clr Calc Pharmacy 147.6 ml/min; Est GFR (African American) 144.9 ml/min; Potassium 3.6 mmol/L (3.5-5.1)
[2023-04-27] MEDS ORDERED: CIPROFLOXACIN / D5W 400 MG/200 ML BAG IV STA (07:58)
[2023-04-27 08:13] LABS: Bilirubin Direct 0.1 mg/dl (0-0.2); Bilirubin,Total 0.6 mg/dl (0.2-1.0); Total Protein 7.3 gm/dl (6.0-8.3)
--- NOTE | 2023-04-27 08:37 | CT Scan Report ---
CT OF THE ABDOMEN AND PELVIS WITHOUT CONTRAST CLINICAL HISTORY: Hematuria. Dysuria. COMPARISON STUDY: No previous studies for comparison. TECHNIQUE: Axial images of the abdomen and pelvis were obtained without IV contrast. Images were revi ewed in the axial, sagittal, and coronal planes. Automated exposure control was utilized for the [place]. A dose lowering technique was utilized adhering to the principles of ALARA. FINDINGS: There is a trace left pleural effusion. No pneumatosis, free air or portal venous gas is pr esent. No renal, ureteral or bladder calculi are present. There is no hydronephrosis. Evaluation of t he remainder of the abdomen and pelvis is suboptimal on this unenhanced exam. Severe hepatic steatosi s is noted. Liver is mildly enlarged. There is no biliary or pancreatic ductal dilatation. Gallbladde r is mildly distended. Peripancreatic stranding and a small amount of peripancreatic fluid is noted. The gland is edematous. No loculated peripancreatic fluid collection is present. Small amount of abdo desirae ascites is present. There is associated mesenteric stranding. There is moderate pelvic ascites. Spleen, adrenal glands and kidneys are unremarkable on unenhanced exam. The appendix is normal. Ther e is no evidence for a bowel obstruction. Apparent wall thickening of the ascending and proximal guajardo sverse colon is likely due to underdistention. IMPRESSION: 1. Findings consistent with acute pancreatitis. Edematous pancreas with peripancreatic stranding and a small amount of peripancreatic ascites. Moderate fluid within the pelvis. 2. Severe hepatic steatosis. Mild hepatomegaly. 3. Wall thickening of the ascending and proximal to mid transverse colon. This is likely due to under distention although a nonspecific colitis could appear similar. No bowel obstruction. Normal appendix . 4. No urinary calculi or hydronephrosis. 5. Trace left pleural effusion. ACT 112: Negative or not required by law. Electronically signed by: Khoa Gonzalez M.D. 04/27/2023 8:35 AM
[2023-04-27 09:35] LABS: Base Excess VBG -3.7 mEq/L; HCO3 VBG 21 mmol/L; Oxygen Saturation VBG 88.7 %; PCO2 VBG 34 mmHg (38-50); PO2 VBG 60 mmHg; pH VBG 7.39 (7.36-7.41)
--- NOTE | 2023-04-27 10:25 | History & Physical Report ---
Date of Service April 27, 2023 Assessment & Plan (1) Acute pancreatitis: Plan: Acute pancreatitis in a 32 yo female with history of alcohol use SITKA score is low. WIll admit to med/surg Will place on IVF. Place on pain medicine. Patient will be NPO. Imaging show signs of severe pancreatitits with free fluid in pelvis (2) Alcohol abuse: Plan: Patient interested in abstaining from alcohol. Plaxced on alcohol withdrawal scale Placed on thiamine, folic acid DVT :lovenox (3) UTI (urinary tract infection): Plan: placed ciprofloxacin awaiting cultures History of Present Illness Chief Complaint: abdominal pain Primary Care Provider: LYNDA Mckeon 32 yo female presents to the hospital with a one day history of periumbilical pain.Patient reports that on Sunday she had urinary symptoms including incontinence and dysuria. Patient was seen at an urgent care aand was prescribed pyridium. Patient reports her symptoms worsened until where she started having sharp stabbing abdominal pain located periumbilac region and radiating to both flanks. As pain continue to worsen, patient arrived to ED. Social history patient drink 2-3 alcoholic beverages daily(Moscato), slightly more on Fridays and Saturdays. Allergies Allergy/AdvReac Type Severity Reaction Status Date / Time No Known Allergies Allergy Verified 03/13/23 10:17 Home Medications Medication Instructions Recorded Confirmed Type ibuprofen 200 mg tablet 400 mg PO DIRECTED PRN Pain 08/27/20 04/27/23 History amlodipine 2.5 mg tablet 2.5 mg PO DAILY #90 tabs 03/13/23 04/27/23 Rx amlodipine 5 mg tablet 5 mg PO DAILY #90 tabs 03/13/23 04/27/23 Rx norethindrone (contraceptive) 0.35 0.35 mg PO DAILY #84 tabs 04/03/23 04/27/23 Rx mg tablet clotrimazole-betamethasone 1 1 applic topical BID PRN eczema 04/27/23 04/27/23 History %-0.05 % topical cream Past Med/Surg History Medical History UTI (urinary tract infection) Elevated BP without diagnosis of hypertension Suspected COVID-19 virus infection Surgical History Hx of unilateral salpingectomy Family History Grandfather (Maternal) Lung cancer Hypertension Other Obstructive sleep apnea Denies family history of Ovarian cancer Prostate cancer Depression Myocardial infarction Breast cancer Colorectal cancer Stroke Social History Smoking Status: Current every day smoker Tobacco Type: E-cigarettes / Vaping Second Hand Exposure: No; Do You Dip or Chew Tobacco: No; Tobacco Cessation Education Requested by Patient: No Hx Alcohol Use: Yes Alcohol type: beer, wine and hard liquor Hx Substance Use: No Preferred Language: Hungarian Communication Ability: Effective Visual Impairment: Limited Flotation Tank Operator Required: No Beliefs That Will Affect Care: None marital status: Legally Current Living Situation: Alone current occupational status: employed 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 [employer] How many Children do You have: 0 Other Information That Helps Us Care for You: No Feels Safe at Home: No Is there a partner from a previous relationship who is making you feel unsafe now?: No Any Concerns about Your Family Situation: No Would You Like to Speak to Someone About Your Situation: No Safety Concerns: Feels Safe At This Time Childhood Exposure to Second-Hand Smoke: No caffeine: Yes Dental Care, Regularly: Yes Physical Activity Frequency: Does not Exercise Seatbelt Use: always Sunscreen Use: Yes Assistive Devices: None Review of Systems Constitutional: no fever Eyes: no blind spots Ear, Nose, Mouth, Throat: no ear pain and no tinnitus Respiratory: no cough Cardiovascular: no chest pain Gastrointestinal: + abdominal pain Genitourinary: + dysuria Musculoskeletal: no back pain Integumentary: no acne Neurologic: no gait abnormality Psychiatric: no behavioral changes Endocrine: no fatigue Hematologic / Lymphatic: no easy bleeding Allergy / Immunological: no GI upset with certain foods Physical Exam Constitutional: WD/WN, vitals as above Eyes: PERRL, conjunctivae normal, anicteric sclerae ENMT: external ear and nose normal, oropharynx normal Neck: trachea midline, no thyromegaly Respiratory: normal respiratory effort, lungs clear to auscultation Cardiovascular: RRR, no murmur, no edema Gastrointestinal (Abdomen): Inspection/Auscultation: abdomen normal to inspection and normal bowel sounds; abdomen not distended Percussion/Palpation: + abdomen tender (epigastric and periumbilical region, no rebound tenderness) and abdomen soft Musculoskeletal: no cyanosis or clubbing, extremities motor strength 5/5 Skin: no rashes, warm and dry Psychiatric: A+Ox3, euthymic affect Lymphatic: no cervical or axillary lymphadenopathy Results & Data Results & Data Vital Signs (Past 12 Hours) Vital Signs Temp Pulse Pulse Resp BP BP Pulse Ox 04/27/23 09:27 87 14 104/65 97 04/27/23 08:18 89 04/27/23 07:56 95 H 14 110/68 98 04/27/23 07:56 04/27/23 06:34 36.5 C 138 H 17 114/78 96 O2 Del Method 04/27/23 09:27 Room Air 04/27/23 08:18 04/27/23 07:56 Room Air 04/27/23 07:56 Room Air 04/27/23 06:34 Room Air PG Care Time/CCT Total # of Minutes Spent Total Time Spent with Patient: Total time spent is greater than 50% in coordination of care (as documented) at patient's floor/unit and/or counseling patient: Coding Level of Care Code 78732 INT INP/OBS CARE 3/75MIN Diagnoses Acute pancreatitis K85.90 Alcohol abuse F10.10 UTI (urinary tract infection) N39.0
[2023-04-27] MEDS ORDERED: HYDROmorphone INJ 0.5 MG/0.5 ML SYR IV PRN (10:34)
[2023-04-27] MEDS: LACTATED RINGER'S 1,000 ML IV SCH ×2 (11:06→20:13)
[2023-04-27] MEDS ORDERED: [UNRECOGNIZED DRUG - REMARK] SCH (16:00)
[2023-04-27] MEDS ORDERED: Ativan IV Alcohol Withdrawal--Active Protocol IV PRN (16:06)
[2023-04-27] MEDS ORDERED: LORazepam 2 MG/1 ML VIAL IV PRN ×3 (16:06)
[2023-04-27] MEDS: ACETAMINOPHEN 325 MG TAB PO PRN (17:44)
[2023-04-27] MEDS: ENOXAPARIN INJ 40 MG/0.4 ML SYR SQ SCH (17:44)
[2023-04-27] MEDS: THIAMINE HCL 100 MG in SYRINGE 9 ML IV SCH (20:14)
[2023-04-27] MEDS: CIPROFLOXACIN / D5W 400 MG/200 ML BAG IV SCH (20:53)
[2023-04-27] MEDS: PATIENT'S OWN ORAL CONTRACEPTIVE PO SCH (21:51)
[2023-04-28] MEDS: LACTATED RINGER'S 1,000 ML IV SCH ×3 (04:16→19:39)
[2023-04-28 06:14] LABS: Base Excess VBG 0.8 mEq/L; HCO3 VBG 24 mmol/L; Oxygen Saturation VBG 85.2 %; PCO2 VBG 34 mmHg (38-50); PO2 VBG 51 mmHg; pH VBG 7.46 (7.36-7.41)
[2023-04-28 06:26] LABS: Hematocrit (blood only) 35.3 % (37.0-47.0); Hemoglobin 12.2 g/dl (12.0-16.0); Mean Corpuscular Hemoglobin 33.7 pg (25.0-34.0); Mean Corpuscular Hgb Conc 34.6 g/dL (32.0-36.0); Mean Corpuscular Volume 97.5 fL (80.0-100.0); Mean Platelet Volume 9.9 fL (9.4-12.4); Platelet Count 112 K/uL (130-400); RDW Coefficient of Variation 12.8 % (11.5-14.5); RDW Standard Deviation 46.4 fL (36.4-46.3); Red Blood Count 3.62 M/uL (4.20-5.40); White Blood Count 6.09 K/ul (4.8-10.8)
[2023-04-28 07:25] LABS: BUN Creatinine Ratio 18.9 (10-20); Calcium 8.4 mg/dl (8.6-10.3); Creatinine Clr Calc Pharmacy 153.2 ml/min; Est GFR (African American) 146.6 ml/min; Est GFR (Non-African American) 126.5 ml/min; Potassium 3.9 mmol/L (3.5-5.1)
[2023-04-28 07:39] LABS: Albumin Globulin Ratio 1.2 (0.9-2); Albumin Level 3.3 gm/dl (3.4-5.0); Bilirubin,Total 0.8 mg/dl (0.2-1.0); Globulin 2.8 gm/dl (2.5-4.0); Magnesium 1.6 mg/dl (1.7-2.4); Phosphorus 1.8 mg/dl (2.5-4.9); Total Protein 6.1 gm/dl (6.0-8.3)
[2023-04-28] MEDS ORDERED: POTASSIUM PHOS 3 MMOL/1 ML INFUSION IV STA (08:59)
[2023-04-28] MEDS ORDERED: MAGNESIUM SULFATE / D5W 1 GM/100 ML BAG IV ONE (08:59)
[2023-04-28] MEDS ORDERED: PATIENT'S OWN ORAL CONTRACEPTIVE PO SCH (09:00)
[2023-04-28] MEDS: FOLIC ACID 1 MG in SYRINGE 9.8 ML IV SCH (09:07)
[2023-04-28] MEDS: CIPROFLOXACIN / D5W 400 MG/200 ML BAG IV SCH ×2 (09:07→19:38)
[2023-04-28] MEDS: THIAMINE HCL 100 MG in SYRINGE 9 ML IV SCH (09:07)
[2023-04-28] MEDS ORDERED: POTASSIUM PHOSPHATE 24 MMOL in SODIUM CHLORIDE 0.9% 500 ML IV ONE (09:30)
[2023-04-28] MEDS: ENOXAPARIN INJ 40 MG/0.4 ML SYR SQ SCH (12:19)
[2023-04-28] MEDS: PATIENT'S OWN ORAL CONTRACEPTIVE PO SCH (19:40)
--- NOTE | 2023-04-28 22:55 | Hospitalist Progress Note ---
Date of Service April 28, 2023 Assessment & Plan (1) Acute pancreatitis: Plan: Acute pancreatitis in a 32 yo female with history of alcohol use ALABAMA-COUSHATTA score is low. Admitted to Med surg Continue lactate ringers 125 ml/hr continue pain medicine. NPO Lipase improving replaced electrolytes for hypomagnesemia and hypophosphatemia Imaging show signs of severe pancreatitis with free fluid in pelvis May advance diet on 04/29 (2) Alcohol abuse: Plan: Patient interested in abstaining from alcohol. Plaxced on alcohol withdrawal scale Placed on thiamine, folic acid consult case management for assistance in rehab info. DVT :lovenox (3) UTI (urinary tract infection): Plan: placed ciprofloxacin awaiting cultures Admission and Anticipated Discharge Date Admission Date: April 27, 2023 Subjective Patiwnt reports feeling better. Her pain has decreased in intensity. She is asking for permission to swallow ice. Review of Systems Review of Systems: All systems reviewed & are unremarkable except as noted in HPI & below Physical Exam Constitutional: WD/WN, vitals as above Eyes: PERRL, conjunctivae normal, anicteric sclerae ENMT: external ear and nose normal, oropharynx normal Neck: trachea midline, no thyromegaly Respiratory: normal respiratory effort, lungs clear to auscultation Cardiovascular: RRR, no murmur, no edema Gastrointestinal (Abdomen): Inspection/Auscultation: abdomen normal to inspection and normal bowel sounds; abdomen not distended Percussion/Palpation: + abdomen tender (epigastric and periumbilical region, no rebound tenderness) and abdomen soft Musculoskeletal: no cyanosis or clubbing, extremities motor strength 5/5 Skin: no rashes, warm and dry Psychiatric: A+Ox3, euthymic affect Lymphatic: no cervical or axillary lymphadenopathy Results & Data Results & Data Vital Signs (Past 12 Hours) Vital Signs Temp Pulse Resp BP BP Pulse Ox O2 Del Method 04/28/23 21:29 37.0 C 84 18 134/94 99 Room Air 04/28/23 15:35 36.9 C 86 16 114/80 99 Room Air PG Care Time/CCT Total # of Minutes Spent Total Time Spent with Patient: Total time spent is greater than 50% in coordination of care (as documented) at patient's floor/unit and/or counseling patient: Coding Level of Care Code 49203 SUB INP/OBS CARE 2/35MIN Diagnoses Acute pancreatitis K85.90 Alcohol abuse F10.10 UTI (urinary tract infection) N39.0
[2023-04-29] MEDS: LACTATED RINGER'S 1,000 ML IV SCH ×3 (01:44→17:34)
[2023-04-29 06:44] LABS: Hemoglobin 12.4 g/dl (12.0-16.0); Mean Corpuscular Hemoglobin 33.9 pg (25.0-34.0); Mean Corpuscular Hgb Conc 35.4 g/dL (32.0-36.0); Mean Corpuscular Volume 95.6 fL (80.0-100.0); Mean Platelet Volume 10.7 fL (9.4-12.4); Platelet Count 125 K/uL (130-400); RDW Coefficient of Variation 12.6 % (11.5-14.5); RDW Standard Deviation 43.8 fL (36.4-46.3); Red Blood Count 3.66 M/uL (4.20-5.40); White Blood Count 6.26 K/ul (4.8-10.8)
[2023-04-29 07:06] LABS: Calcium 8.6 mg/dl (8.6-10.3); Creatinine Clr Calc Pharmacy 162.3 ml/min; Est GFR (African American) 149.5 ml/min; Potassium 3.8 mmol/L (3.5-5.1)
[2023-04-29 07:25] LABS: Albumin Globulin Ratio 1.2 (0.9-2); Albumin Level 3.3 gm/dl (3.4-5.0); Bilirubin,Total 0.7 mg/dl (0.2-1.0); Globulin 2.8 gm/dl (2.5-4.0); Total Protein 6.1 gm/dl (6.0-8.3)
[2023-04-29 07:55] LABS: INR 1.1 (0.9-1.1); Prothrombin Time 11.9 Seconds (9.0-12.0)
[2023-04-29] MEDS: CIPROFLOXACIN / D5W 400 MG/200 ML BAG IV SCH ×2 (08:17→20:59)
[2023-04-29] MEDS: FOLIC ACID 1 MG in SYRINGE 9.8 ML IV SCH (08:17)
[2023-04-29] MEDS: THIAMINE HCL 100 MG in SYRINGE 9 ML IV SCH (08:17)
[2023-04-29] MEDS: ENOXAPARIN INJ 40 MG/0.4 ML SYR SQ SCH (08:18)
--- NOTE | 2023-04-29 09:15 | Hospitalist Progress Note ---
Date of Service April 29, 2023 Assessment & Plan (1) Acute pancreatitis: Plan: Acute alcoholic pancreatitis, healthy 32-year-old who reports binge drinking only on the weekends not daily alcohol use, no history of alcohol withdrawal Imaging show signs of severe pancreatitis with free fluid in pelvis - continue LR at 125 mils per hour advance diet to clears today and tolerated, full liquid tonight if still doing well without significant pain - continue as needed antiemetics, has not been using opioids for pain - AM BMP mag phos CBC - counseled alcohol cessation replaced electrolytes for hypomagnesemia and hypophosphatemia (2) Alcohol abuse: Plan: Patient interested in abstaining from alcohol. Placed on thiamine, folic acid consult case management for assistance in rehab info. DVT :lovenox (3) UTI (urinary tract infection): Plan: Lara-sensitive E. coli. Completed 3 days of treatment with cipro as of 04/29 Admission and Anticipated Discharge Date Admission Date: April 27, 2023 Subjective epigastric pain nearly resolved. trying clears now. no N/V today. states she only binge drinks on weekends, never had alcohol withdrawal, intends to stop. Physical Exam 2 Physical Exam: PHYSICAL EXAMINATION Last 24h vital signs reviewed, see documentation in flowsheet General: comfortable appearing, no distress, Young, well-appearing HEENT: Normocephalic, atraumatic, pupils round and equal, sclerae anicteric, no conjunctival injection, moist mucus membranes Lungs: Normal respiratory effort. Clear to auscultation bilaterally. No RRW Heart: Regular rate and rhythm, no murmurs. No JVD Abdomen: Soft, nontender, nondistended. no epigastric tenderness Bowel sounds present. Extremities: Warm, dry, well-perfused. No extremity edema. Neuro: Alert and oriented x 4, face symmetric, moves 4 extremities well Psych: Normal affect and behavior Results & Data Results & Data Vital Signs (Past 12 Hours) Vital Signs Temp Pulse Resp BP Pulse Ox O2 Del Method 04/29/23 08:30 37.4 C 77 16 111/73 98 Room Air Laboratory Results 04/29/23 05:43 04/29/23 05:43 Diagnostic Findings Abdomen/Pelvis CT 04/27/23 06:48 CT OF THE ABDOMEN AND PELVIS WITHOUT CONTRAST CLINICAL HISTORY: Hematuria. Dysuria. COMPARISON STUDY: No previous studies for comparison. TECHNIQUE: Axial images of the abdomen and pelvis were obtained without IV contrast. Images were reviewed in the axial, sagittal, and coronal planes. Automated exposure control was utilized for the study. A dose lowering technique was utilized adhering to the principles of ALARA. FINDINGS: There is a trace left pleural effusion. No pneumatosis, free air or portal venous gas is present. No renal, ureteral or bladder calculi are present. There is no hydronephrosis. Evaluation of the remainder of the abdomen and pelvis is suboptimal on this unenhanced exam. Severe hepatic steatosis is noted. Liver is mildly enlarged. There is no biliary or pancreatic ductal dilatation. Gallbladder is mildly distended. Peripancreatic stranding and a small amount of peripancreatic fluid is noted. The gland is edematous. No loculated peripancreatic fluid collection is present. Small amount of abdominal ascites is present. There is associated mesenteric stranding. There is moderate pelvic ascites. Spleen, adrenal glands and kidneys are unremarkable on unenhanced exam. The appendix is normal. There is no evidence for a bowel obstruction. Apparent wall thickening of the ascending and proximal transverse colon is likely due to underdistention. IMPRESSION: 1. Findings consistent with acute pancreatitis. Edematous pancreas with peripancreatic stranding and a small amount of peripancreatic ascites. Moderate fluid within the pelvis. 2. Severe hepatic steatosis. Mild hepatomegaly. 3. Wall thickening of the ascending and proximal to mid transverse colon. This is likely due to underdistention although a nonspecific colitis could appear similar. No bowel obstruction. Normal appendix. 4. No urinary calculi or hydronephrosis. 5. Trace left pleural effusion. ACT 112: Negative or not required by law. Electronically signed by: Khoa Gonzalez M.D. 04/27/2023 8:35 AM PG Care Time/CCT Total # of Minutes Spent Total Time Spent with Patient: Total time spent is greater than 50% in coordination of care (as documented) at patient's floor/unit and/or counseling patient: Coding Level of Care Code 63955 SUB INP/OBS CARE 2/35MIN Diagnoses Acute pancreatitis K85.90 Alcohol abuse F10.10 UTI (urinary tract infection) N39.0
[2023-04-29 10:09] LABS: Magnesium 1.6 mg/dl (1.7-2.4); Phosphorus 2.9 mg/dl (2.5-4.9)
[2023-04-29] MEDS: MAGNESIUM SULFATE / D5W 1 GM/100 ML BAG IV SCH ×2 (12:57→14:58)
[2023-04-29] MEDS: PATIENT'S OWN ORAL CONTRACEPTIVE PO SCH (20:59)
[2023-04-30] MEDS: LACTATED RINGER'S 1,000 ML IV SCH ×2 (01:26→09:43)
[2023-04-30] MEDS: ACETAMINOPHEN 325 MG TAB PO PRN ×2 (01:28→08:00)
[2023-04-30 07:57] LABS: Hematocrit (blood only) 36.2 % (37.0-47.0); Hemoglobin 12.9 g/dl (12.0-16.0); Mean Corpuscular Hgb Conc 35.6 g/dL (32.0-36.0); Mean Corpuscular Volume 95.5 fL (80.0-100.0); Mean Platelet Volume 9.8 fL (9.4-12.4); Platelet Count 147 K/uL (130-400); RDW Coefficient of Variation 12.5 % (11.5-14.5); RDW Standard Deviation 43.6 fL (36.4-46.3); Red Blood Count 3.79 M/uL (4.20-5.40)
[2023-04-30 08:22] LABS: Creatinine Clr Calc Pharmacy 162.3 ml/min; Est GFR (African American) 149.5 ml/min; Magnesium 1.7 mg/dl (1.7-2.4); Phosphorus 3.7 mg/dl (2.5-4.9); Potassium 3.6 mmol/L (3.5-5.1)
[2023-04-30] MEDS: FOLIC ACID 1 MG in SYRINGE 9.8 ML IV SCH (09:09)
[2023-04-30] MEDS: ENOXAPARIN INJ 40 MG/0.4 ML SYR SQ SCH (09:19)
[2023-04-30] MEDS: THIAMINE HCL 100 MG in SYRINGE 9 ML IV SCH (09:54)
[2023-04-30] MEDS: CIPROFLOXACIN / D5W 400 MG/200 ML BAG IV SCH (10:01)
--- NOTE | 2023-04-30 18:54 | Discharge Summary ---
Date of Service April 30, 2023 Admission HPI Per Admitting Provider 32 yo female presents to the hospital with a one day history of periumbilical pain.Patient reports that on Sunday she had urinary symptoms including incontinence and dysuria. Patient was seen at an urgent care aand was prescribed pyridium. Patient reports her symptoms worsened until where she started having sharp stabbing abdominal pain located periumbilac region and radiating to both flanks. As pain continue to worsen, patient arrived to ED. Social history patient drink 2-3 alcoholic beverages daily(Moscato), slightly more on Fridays and Saturdays. Principal Diagnosis acute alcohol related pancreatitis Discharge Exam PHYSICAL EXAMINATION Last 24h vital signs reviewed, see documentation in flowsheet Exam unchanged 04/30 General: comfortable appearing, no distress, Young, well-appearing HEENT: Normocephalic, atraumatic, pupils round and equal, sclerae anicteric, no conjunctival injection, moist mucus membranes Lungs: Normal respiratory effort. Clear to auscultation bilaterally. No RRW Heart: Regular rate and rhythm, no murmurs. No JVD Abdomen: Soft, nontender, nondistended. no epigastric tenderness Bowel sounds present. Extremities: Warm, dry, well-perfused. No extremity edema. Neuro: Alert and oriented x 4, face symmetric, moves 4 extremities well Psych: Normal affect and behavior Discharge Data Allergies Allergy/AdvReac Type Severity Reaction Status Date / Time No Known Allergies Allergy Verified 03/13/23 10:17 Consultations 04/27/23 08:45 ED Decision to Admit Stat Ordered Studies 04/27/23 06:48 CT abd pelvis wo con Stat Abdomen/Pelvis CT 04/27/23 06:48 CT OF THE ABDOMEN AND PELVIS WITHOUT CONTRAST CLINICAL HISTORY: Hematuria. Dysuria. COMPARISON STUDY: No previous studies for comparison. TECHNIQUE: Axial images of the abdomen and pelvis were obtained without IV contrast. Images were reviewed in the axial, sagittal, and coronal planes. Automated exposure control was utilized for the study. A dose lowering technique was utilized adhering to the principles of ALARA. FINDINGS: There is a trace left pleural effusion. No pneumatosis, free air or portal venous gas is present. No renal, ureteral or bladder calculi are present. There is no hydronephrosis. Evaluation of the remainder of the abdomen and pelvis is suboptimal on this unenhanced exam. Severe hepatic steatosis is noted. Liver is mildly enlarged. There is no biliary or pancreatic ductal dilatation. Gallbladder is mildly distended. Peripancreatic stranding and a small amount of peripancreatic fluid is noted. The gland is edematous. No loculated peripancreatic fluid collection is present. Small amount of abdominal ascites is present. There is associated mesenteric stranding. There is moderate pelvic ascites. Spleen, adrenal glands and kidneys are unremarkable on unenhanced exam. The appendix is normal. There is no evidence for a bowel obstruction. Apparent wall thickening of the ascending and proximal transverse colon is likely due to underdistention. IMPRESSION: 1. Findings consistent with acute pancreatitis. Edematous pancreas with p eripancreatic stranding and a small amount of peripancreatic ascites. Moderate fluid within the pelvis. 2. Severe hepatic steatosis. Mild hepatomegaly. 3. Wall thickening of the ascending and proximal to mid transverse colon. This is likely due to underdistention although a nonspecific colitis could appear similar. No bowel obstruction. Normal appendix. 4. No urinary calculi or hydronephrosis. 5. Trace left pleural effusion. ACT 112: Negative or not required by law. Electronically signed by: Khoa Gonzalez M.D. 04/27/2023 8:35 AM 04/30/23 Range/Units 07:17 WBC 6.80 (4.8-10.8) K/ul RBC 3.79 L (4.20-5.40) M/uL Hgb 12.9 (12.0-16.0) g/dl Hct 36.2 L (37.0-47.0) % MCV 95.5 (80.0-100.0) fL MCH 34.0 (25.0-34.0) pg MCHC 35.6 (32.0-36.0) g/dL RDW Std Deviation 43.6 (36.4-46.3) fL RDW Coeff of Jessica 12.5 (11.5-14.5) % Plt Count 147 (130-400) K/uL MPV 9.8 (9.4-12.4) fL Sodium 135 L (136-145) mmol/L Potassium 3.6 (3.5-5.1) mmol/L Chloride 98 (98-107) mmol/L Carbon Dioxide 27 (21-32) mmol/L Anion Gap 10 (3-11) BUN 3 L (6-23) mg/dl Creatinine 0.50 L (0.6-1.2) mg/dl Est Cr Clr Drug Dosing 162.3 ml/min Est GFR ( Amer) 149.5 ml/min Est GFR (Non-Af Amer) 129.0 ml/min BUN/Creatinine Ratio 6.0 L (10-20) Glucose 83 (70-99(Fasting)) mg/dl Calcium 9.0 (8.6-10.3) mg/dl Phosphorus 3.7 (2.5-4.9) mg/dl Magnesium 1.7 (1.7-2.4) mg/dl Hospital Course (1) Acute pancreatitis: Acute alcoholic pancreatitis, healthy 32-year-old who reports binge drinking only on the weekends not daily alcohol use, no history of alcohol withdrawal Imaging show signs of severe pancreatitis with free fluid in pelvis -treated with bowel rest and IV LR -needed minimal meds for pain and nausea control, none last 36h -tolerated advancement of diet to low fat -I counseled alcohol cessation 04/29, 04/30. Mother is involved and supportive replaced electrolytes for hypomagnesemia and hypophosphatemia no evidence of alcohol withdrawal this admission (2) Alcohol abuse: She is interested in abstaining from alcohol. (3) UTI (urinary tract infection): Lara-sensitive E. coli. Completed 3 days of treatment with cipro as of 04/29 Total Time Total Time Spent Total Time Spent (In Minutes): 25 minutes Discharge Plan Discharge Items Patient Disposition: Home - Self-Care Reason For Visit: ALCOHOL INDUCED PANCREATITIS Discharge Diagnosis: Alcohol induced pancreatitis Condition on Discharge: Good Activity: Resume your previous activity Non-emergency contact: Primary Care Provider Call non-emergency contact if: you have any medication questions and your symptoms worsen Follow-up/Referrals: Jesus Spear CRNP [Primary Care Provider] - 05/07/23 11:30 am (APPOINTMENT WITH DR URIBE) Diet: Low Fat Diet Comment: No alcohol Addtl Attending Provider Instructions: Alcohol induced pancreatitis - pancreas inflammation that causes pain -you had a moderate case of pancreatitis -pancreatitis can range from mild to life threatening -it is very important to avoid alcohol, which is toxic to the pancreas. Follow a low fat diet for a few weeks, because fat stimulates the pancreas -seek medical attention if you develop worsening abdominal pain, nausea/vomiting, or abdominal swelling - these could be signs of pancreatitis complications We treated you for possible urinary tract infection -you finished your antibiotics today while you were in the hospital Pending Studies at Discharge: No Stand-Alone Forms: My [facility], Work/School Release, Smoking Cessation Medications and DC Order Prescriptions: Continued norethindrone (contraceptive) 0.35 mg tablet 0.35 mg PO DAILY Qty: 84 3RF amlodipine 5 mg tablet 5 mg PO DAILY Qty: 90 3RF amlodipine 2.5 mg tablet 2.5 mg PO DAILY Qty: 90 3RF ibuprofen 200 mg Tablet 400 mg PO DIRECTED PRN (Reason: Pain) clotrimazole-betamethasone 1-0.05 % cream 1 applic topical BID PRN (Reason: eczema) Discharge Orders: Discharge Order (Routine); Ordered 04/30/23 Ordered By: Virginia Oro/Other Patient Handouts: Understanding Pancreatitis Admission Data Admit Date/Time: 04/27/23 09:18 Attending Provider: Virginia Singer Admit Provider: Senthil Bearden Primary Care Provider: Jesus Spear Other Providers: Senthil Bearden Other Interventions: Discharge Summary Assessment (RN) Last Done: 04/30/23 15:28 Coding Level of Care Code 23666 IN/OBS DISCH 30 MIN/LESS Diagnoses Acute pancreatitis K85.90 Alcohol abuse F10.10 UTI (urinary tract infection) N39.0
--- OUTSIDE RECORDS SUMMARY | 2023-05-03 13:38 | External Medical Summary | Summary of Care ---
Author Name Unknown Organization [facility] Address [address] [place] [address] Phone [phone] Care Team Providers Care Conceptor Name Role Phone Unavailable Primary Care Provider Unavailabl e Encounter Details Date Type Department Care Team Description 03/09/2023 Refill Gynecology/Obstetrics [facility] [address], [place] [id number] Lisbet Thompson [facility] [address] [place] [address] Oral contraceptive pill surveillance Allergies No known active allergiesdocumented as of this encounter (statuses as of 03/27/2023) Medications Medication Sig Dispensed Refills Start Date End Date Status Norethindrone 0.35 MG Oral TabletIndications:Oral contraceptive pill surveillance Take by mouth 1 Tablet in the morning. 90 Tablet 3 04/11/2022 Active documented as of this encounter (statuses as of 03/27/2023) Active Problems Problem Noted Date Elevated BP without diagnosis of hyperte nsion 06/09/2022 documented as of this encounter (statuses as of 03/27/2023) Social History Tobacco Use Types Packs/Day Years Used Date Smoking Tobacco: Every Day Cigarettes 2 Cigars Smokeless Tobacco: Never Comments:1-2 cigars a day Alcohol Use Standard Drinks/Week Comments Yes 4 (1 standard drink = 0.6 oz pur e alcohol) occ Alcohol Habits Answer Date Recorded How often do you have a drink containing alcohol ? Monthly or less 08/13/2018 How many drinks containing a lcohol do you have on a typical day when you are drinking? 5 or 6 08/13/2018 How often do you have six or more drinks on one occasion? Never 08/13/2018 Sex Assigned at Date Recorded Not on file Job Start Date Occupation Industry Not on file Not on file Not on file documented as of this encounter Miscellaneous Notes * Telephone Encounter - Chrystal Scanlon LPN - 03/27/2023 8:53 AM EDTRefused Prescriptions: Disp Refills Norethindrone 0.35 MG Oral Tablet 90 Tab*3 Sig: Take 1 Tablet by mouth in the morning.Refused By: CHRYSTAL SCANLON LReason for Refusal: Patient Should Contact Provider First * Telephone Encounter - Chrystal Scanlon LPN - 03/09/2023 11:31 AM EDT Refill request. Needs scheduled for annual after 04/11/2023. Sent MyG. * Telephone Encounter - Zaki Zuniga RN - 03/09/2023 11:21 AM EDT Fax request for med refill Pending Prescriptions: Disp Refills Norethindrone 0.35 MG Oral Tablet 90 Tab*3 Sig: Take 1 Tablet by mouth in the morning. Last Visit: Visit date not found (in office), Visit date not found (telemedicine) Next Visit: Visit date not found Patient Active Problem List Diagnosis Code Elevated BP without diagnosis of hypertension R03.0 documented in this encounter Plan of Treatment Health Maintenance Due Date Last Done Comments Hepatitis B (1 of 3 - 3-dose series) 1991 Pneumococcal Vaccine: Pediatrics (0 to 5 Years) and At-Risk Patients (6 to 64 Years) (1 - PCV) 09/03/1997 HIV Screening 09/03/2006 Hepatitis C Screening 09/03/2009 DTaP,Tdap,and Td Vaccines (1 - Tdap) 09/03/2010 Depression Screening 08/13/2019 08/13/2018 HPV/Co-Test 09/03/2021 COVID-19 Vaccine (3 - 2022-2 4 season) 2023 10/27/2020, 10/06/2020 Influenza Vaccine (FLU shot) (#1) 2023 Cervical Cancer Screening 04/11/2025 Pap Smear 04/11/2025 04/11/2022 GARDASIL-HPV IMMUNIZATION SERIES Aged Out No longer eligible b ased on patient's age to complete this topic MENINGOCOCCAL (MENACTRA/MENVEO) Aged Out No longer eligible b ased on patient's age to complete this topic documented as of this encounter Medical Devices Not on filedocumented as of this encounter Visit Diagnoses Diagnosis Oral contraceptive pill surveillance Surveillance of previously prescribed contraceptive pill documented in this encounter
--- OUTSIDE RECORDS SUMMARY | 2023-05-03 13:38 | External Medical Summary | Summary of Care ---
Author Name Unknown Organization [facility] Address [address] [place] [address] Phone [phone] Care Team Providers Care Colorist Dyer Name Role Phone Unavailable Primary Care Provider Unavailabl e Encounter Details Date Type Department Care Team Description 04/02/2023 Refill Gynecology/Obstetrics [facility] [address] [facility] [place] [address] Lisbet Thompson, [facility] [address] [facility] [place] [id number] Oral contraceptive pill surveillance Allergies No known active allergiesdocumented as of this encounter (statuses as of 04/13/2023) Medications Medication Sig Dispensed Refills Start Date End Date Status Norethindrone 0.35 MG Oral TabletIndications:Oral contraceptive pill surveillance Take by mouth 1 Tablet in the morning. 90 Tablet 3 04/11/2022 Active documented as of this encounter (statuses as of 04/13/2023) Active Problems Problem Noted Date Elevated BP without diagnosis of hyperte nsion 06/09/2022 documented as of this encounter (statuses as of 04/13/2023) Social History Tobacco Use Types Packs/Day Years [...] encounter Miscellaneous Notes * Telephone Encounter - ESTEFANI Bates - 04/02/2023 3:17 PM EDT LMOM * Telephone Encounter - Chrystal Scanlon LPN - 04/02/2023 2:58 PM EDTPending Prescriptions: Disp Refills Norethindrone 0.35 MG Oral Tablet 90 Tab*3 Sig: Take 1 Tablet by mouth in the morning. * Telephone Encounter - Noy Jewell LPN - 04/02/2023 2:50 PM EDT Pt is needing annual exam. Pending Prescriptions: Disp Refills Norethindrone 0.35 MG Oral Tablet 90 Tab*3 Sig: Take 1 Tablet by mouth in the morning. Last Visit: 04/11/2022 (in office), 06/09/2022 (telemedicine) Next Visit: Visit date not found [...]
== END 2023-04-30 15:54 | disposition home or self-care (01) | DRG 439 ==
LOC: ED 06:31 → SUATTDRO 09:18 → EDINP 09:18 → 3N 13:15